=== PATIENT | female | born 1935 | race African-American/Black ===

== ENCOUNTER 2016-11-02 10:13 | Emergency (ER) | payer OTHER ==
--- NOTE | ~2016-11-02 | CT4 ---
[facility] A Service of [facility] & [facility] RADIOLOGY TEXT RESULTS PATIENT: YESSENIA KRAMER LOCATION: [facility] : 34 UNIT #: [id number] AGE: [address]: Tk Grimaldo MD SEX: F ORDER DR: [id number] [facility] [address] [place], [place] [address] [id number] MR#: [id number] Acc #: [id number] NAME: YESSENIA KRAMER. : 1935 SEX: F STUDY DATE/TIME: 11/02/2016 10:56 UNIT: [facility] ROOM: STUDY DESCRIPTION: CT Abd and Pelv Wo Cont Attending Physician: Tk Grimaldo M.D. Ordering Physician: Tk Grimaldo M.D. Primary Care Physician: Addi Landon Obi, M.D. MEDICAL IMAGING REPORT This report is preliminary unless electronic signature is present EXAM CT abdomen and pelvis without IV contrast COMPARISON November 21, 2006 INDICATIONS 81-year-old female with abdominal swelling for 2 weeks. No bowel movement for [address] exam was performed with one or more of the following radiation dose reduction techniques: automatic exposure control, adjustment of mA and/or kV according to patient size, and iterative reconstruction. FINDINGS Axial CT imaging of the abdomen and pelvis was performed without IV contrast. Lack of IV contrast limits evaluation of adenopathy, vasculature and viscera. As compared to 2006, there is new skin thickening along the bilateral anterior abdominal wall draping over the pelvis where there is a pannus. This may represent an acute or chronic cellulitis. Clinical correlation is recommended. Evaluation of the pelvis is mildly limited by streak artifact from the patient's right hip total arthroplasty. 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 There is heterotopic calcification just superior to the right acetabulum and at the expected location of the greater trochanter. There is marginal osteophyte formation of the left femoral head. Degenerative changes of both sacroiliac joints. There is bulky degenerative facet disease at L5-S1 bilaterally. There is diffuse osteopenia. Disc spacer devices are noted at L4-L5. There is posterior spinal fusion hardware spanning L2-L4 bilaterally. No evidence of hardware complication. There is also laminectomy seen at the levels of the posterior spinal fusion. No STS. [facility] A Service of [facility] & [facility] RADIOLOGY TEXT RESULTS PATIENT: YESSENIA KRAMER [facility] [id number] : 34 UNIT #: [id number] AGE: [address]: Tk Grimaldo MD SEX: F ORDER DR: evidence of spinal fusion hardware complication. There is severe degenerative disc disease and degenerative endplate change at L1-L2. There is grade 1 degenerative anterolisthesis of L4 on L5. Marked disc height loss at multiple levels of the thoracic spine. Calcified right perihilar lymph nodes are again noted. There are calcified granulomas within the liver and spleen. There is mild cardiomegaly. Minimal calcification at the mitral valve leaflets or the papillary muscles. There is a low-density lesion in the right hepatic lobe which has indeterminate internal Hounsfield units of approximately 31. This measures up to approximately 1.5 cm and is not significantly changed from 2007, most in keeping with benign cyst or hemangioma. Gallbladder is unremarkable. There is mild pancreatic atrophy. There is thickening of the medial limb of the left adrenal gland which appears to be occupied by a hypoattenuating nodule with Hounsfield units of 14. This measures approximately 2.8 cm x 1.9 cm and is stable from 2007 most consistent with a benign adrenal adenoma. There is a bilateral renal atrophy. Arterial calcifications at the renal latricia bilaterally. There is either a benign cyst or angiomyolipoma extending from the inferior pole of the left kidney measuring up to 2.7 cm. There is a hyperdense lesion extending exophytically from the mid pole of the right kidney measuring up to 1.3 cm which was not definitely seen previously. This would seem most in keeping with hemorrhagic cyst. No hydronephrosis or hydroureter. No renal or ureteral calculi. Bilateral pelvic phleboliths noted. There has been prior hysterectomy. No definite adnexal masses are seen although again evaluation is limited by streak artifact from the patient's right hip arthroplasty. No definite adnexal masses are seen although evaluation is limited for the same reasons. There are minimal diverticula of the sigmoid colon. No evidence of acute diverticulitis. There are also a few cecal and right-sided colonic diverticula without evidence of acute diverticulitis. The appendix is normal. Please note that part of the splenic flexure of the colon is excluded from field of view. Gallbladder is unremarkable. There is no evidence of bowel obstruction. No free fluid or pneumoperitoneum. There is diffuse calcification of the abdominal aorta involving the proximal celiac, superior mesenteric and bilateral renal arteries. These calcifications are quite dense at these levels. There is diffuse calcification of the splenic artery without evidence of aneurysm. No adenopathy. IMPRESSION 1. No acute findings in the abdomen, pelvis or imaged lower chest aside for skin thickening seen bilaterally along the lower anterior abdominal wall which is new from 2007, and extends inferiorly along the skin of the patient's pannus. This likely reflects cellulitis of uncertain acuity. Clinical correlation recommended. 2. Mild cardiomegaly with either calcification at the mitral valve or calcifications involving the papillary muscles at this level as well. 3. Severe neural foraminal narrowing at T9-T10 on the right due to STS. [facility] A Service of [facility] RADIOLOGY TEXT RESULTS PATIENT: YESSENIA KRAMER [facility] #: [id number] : 34 UNIT #: [id number] AGE: [address]: Tk Grimaldo MD SEX: F ORDER DR: posterior disc osteophyte complex and degenerative facet disease. 4. Stable 1.7 cm hypoattenuating lesion in the right hepatic lobe which has indeterminate density but given stability since 2006, this is most likely benign, most likely representing a cyst or hemangioma. Stable 1.9 cm benign right adrenal nodule. 5. Benign cyst versus angiomyolipoma of the left kidney. No evidence of rupture or hemorrhage. Bilateral renal atrophy. 6. New 1.3 cm hyperdense lesion extending from the midpole of the right kidney measuring up to 1.3 cm. This most likely represents a hemorrhagic cyst. One could consider CT followup in 1 year to document stability or alternatively ultrasound could be performed now to evaluate for possible internal color flow if the patient cannot receive iodinated contrast. Alternatively, if the patient can receive IV contrast, consider CT abdomen now with and without IV contrast to exclude significant enhancement. 7. Mild diverticulosis without evidence of acute diverticulitis. 8. Dense arterial calcifications involving the major branches of the abdominal aorta as described above. 9. Prior right total hip arthroplasty as well as prior laminectomy and posterior fusion in the lumbar spine. No evidence of hardware complication. Dictated by... Dannie Metcalf M.D. THIS IS AN ELECTRONICALLY VERIFIED REPORT Dannie Metcalf M.D. at 11/06/2016 11:33 AM Ana TD: 11/02/2016 22:40 JOB #: [id number] MEDICAL IMAGING REPORT Page 1 of 1 COPY
[~2016-11-02 10:13] MED LIST: AMLODIPINE BESY10 MG PO; ATENOLOL50 MG PO; AVANDAMET 2 MG/1 TAB PO; ENABLEX7.5 MG PO; HYDROCODON-ACE1 EAC7 PO; HYZAAR 100-25 T1 TAB PO; JANUVIA100 MG PO; OXYCODONE; PEPCID40 MG PO; SIMVASTATIN20 MG PO; VITAMIN B PO; VITAMIN D3400 UNIT PO
[2016-11-02 10:40] LABS: URINE SOURCE CLEAN CATCH
[2016-11-02 10:51] LABS: URINE APPEARANCE CLOUDY; URINE BILIRUBIN NEG (NEG); URINE BLOOD NEG (NEG); URINE COLOR YELLOW; URINE GLUCOSE NEG (NEG); URINE KETONE NEG (NEG); URINE LEUKOCYTE ESTERASE 2+ (NEG); URINE NITRATE NEG (NEG); URINE PROTEIN 2+ (NEG); URINE SPECIFIC GRAVITY 1.015 (1.003-1.035); URINE UROBILINOGEN 0.2 MG/DL (NEG)
[2016-11-02 10:54] LABS: BASOPHIL% 0.8 % (0-2.5); DIFF IND NO; EOSINOPHIL# 0.2 X10e3 (0-0.7); EOSINOPHIL% 3.2 % (0.0-7.0); HEMATOCRIT 37.4 % (35.0-45.0); HEMOGLOBIN 11.5 gm/dL (12.0-16.0); LYMPHOCYTE# 1.5 X10e3 (1.0-3.5); LYMPHOCYTE% 23.7 % (17.0-45.0); MEAN CELL VOLUME 83.1 FL (83-96); MEAN CORPUSCULAR HEMOGLOBIN 25.6 PG (28-34); MEAN CORPUSCULAR HGB CONC 30.8 g/dL (30-36); MEAN PLATELET VOLUME 8.8 FL (6.5-11.5); MONOCYTE# 0.4 X10e3 (0-1.0); NEUTROPHIL# 4.2 X10e3 (1.5-7.1); NEUTROPHIL% 65.3 % (40-75); PLATELET COUNT 177 X10e3 (140-420); RED CELL DISTRIBUTION WIDTH 15.9 % (11.0-15.5); WHITE BLOOD COUNT 6.4 X10e3 (4.0-10.5)
[2016-11-02 10:54] LABS: CULTURE INDICATED? YES; U HYALINE CASTS AUWI 0-2 /[LPF]; URINE BACTERIA AUWI 1+ (NEGATIVE); URINE SQUAMOUS EPITHELIAL CELL OCC /[HPF]
[2016-11-02 11:12] LABS: URBCS1 AUWI NEG /[HPF] (0-2)
[2016-11-02 11:13] LABS: ALBUMIN SERUM 3.3 g/dL (3.5-5.0); BILIRUBIN, DIRECT 0.1 mg/dL (0.0-0.2); BILIRUBIN,INDIRECT 0.4 mg/dL (0.0-0.9); BILIRUBIN,TOTAL 0.5 mg/dL (0.2-2.0); BUN/CREATININE RATIO 25.88; CALCIUM SERUM 9.1 mg/dL (8.4-10.2); CREATININE SERUM 1.7 mg/dL (0.6-1.4); POTASSIUM 4.8 mmol/L (3.5-5.1); PROTEIN TOTAL SERUM 6.8 g/dL (6.0-8.3)
== END 2016-11-02 12:22 | disposition home or self-care (01) ==
LOC: CED 10:13
PROVIDERS: Emergency Medicine
DX: K59.00 Constipation, unspecified (principal); N28.9 Disorder of kidney and ureter, unspecified; L03.311 Cellulitis of abdominal wall; E11.9 Type 2 diabetes mellitus without complications; I10 Essential (primary) hypertension; Z88.2 Allergy status to sulfonamides; Z87.891 Personal history of nicotine dependence
CPT/HCPCS: 36415; 74176; 80048; 80076; 81003; 82150; 83690; 85025; 87086; 99284

== ENCOUNTER 2017-01-03 10:14 | Emergency (ER) | payer OTHER, MEDICARE ==
--- NOTE | ~2017-01-03 | CR230 ---
[facility] A Service of [facility] & [facility] RADIOLOGY TEXT RESULTS PATIENT: YESSENIA KRAMER LOCATION: [facility] : 34 UNIT #: [id number] AGE: [address]: Tk Grimaldo MD SEX: F ORDER DR: [id number] [facility] [address] [place], [place] [address] [id number] E MR#: [id number] Acc #: [id number] NAME: YESSENIA KRAMER. : 1935 SEX: F STUDY DATE/TIME: 01/03/2017 11:04 UNIT: [facility] ROOM: STUDY DESCRIPTION: CR Shoulder Min 2 View Rt Attending Physician: Tk Grimaldo M.D. Ordering Physician: Tk Grimaldo M.D. Primary Care Physician: Addi Landon Obi, M.D. MEDICAL IMAGING REPORT This report is preliminary unless electronic signature is present EXAM Right shoulder, 3 views COMPARISON None INDICATION 81-year-old female with right shoulder pain for 4 days. No known injury. FINDINGS There is bulky osteophyte formation at the right acromioclavicular joint with large humeral head osteophytes as well. There is undersurface touching of the humeral head to the acromion where there is also sclerosis and suggestion of osteophyte formation. Findings are most consistent with a full-thickness rotator cuff tear. Shoulder is anatomically aligned. Evaluation for acute fracture is limited by under-penetration and osteopenia. No evidence of acute fracture on this exam. IMPRESSION 1. No acute fracture or dislocation. 2. 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 3. Pseudoarthrosis of the acromion and humeral head with [id number] touching most consistent with full-thickness rotator cuff tear. Dictated by... Dannie Metcalf M.D. THIS IS AN ELECTRONICALLY VERIFIED REPORT Dannie Metcalf M.D. at 01/10/2017 2:27 PM NICA/robe TD: 01/03/2017 13:28 [facility] A Service of [facility] & [facility] RADIOLOGY TEXT RESULTS PATIENT: YESSENIA KRAMER [id number] : 34 UNIT #: [id number] AGE: [address]: Tk Grimaldo MD SEX: F ORDER DR: JOB #: [id number] MEDICAL IMAGING REPORT Page 1 of 1 COPY
== END 2017-01-03 12:36 | disposition home or self-care (01) ==
LOC: CED 10:14
DX: M25.511 Pain in right shoulder (principal); E11.9 Type 2 diabetes mellitus without complications; Z79.4 Long term (current) use of insulin; E78.5 Hyperlipidemia, unspecified; Z88.2 Allergy status to sulfonamides
CPT/HCPCS: 73030; 96372; 99283; J1885

== ENCOUNTER 2017-03-01 13:37 | Inpatient (IN) | payer OTHER, MEDICARE ==
[~2017-03-01] VITALS: Ht 160 cm; Wt 103.0 kg
--- NOTE | ~2017-03-01 | CR72 ---
[facility] A Service of [facility] & [facility] RADIOLOGY TEXT RESULTS PATIENT: YESSENIA KRAMER LOCATION: [facility] 334-01 : 34 UNIT #: [id number] AGE: [address]: Joseline Calix MD SEX: F ORDER DR: [id number] [facility] [address] [place], [place] [address] [id number] I MR#: [id number] Acc #: [id number] NAME: YESSENIA KRAMER. : 1935 SEX: F STUDY DATE/TIME: 03/01/2017 17:19 UNIT: [facility] ROOM: 23137 STUDY DESCRIPTION: CR Chest Single View Portable Attending Physician: Joseline Calix M.D. Ordering Physician: Robby Srivastava M.D. Primary Care Physician: Addi Landon Obi, M.D. MEDICAL IMAGING REPORT This report is preliminary unless electronic signature is present EXAM Portable chest HISTORY Swelling, redness and congestion, chest pain x2 days. COMPARISON 09/19/2011. FINDINGS Portable view of the chest demonstrates cardiomegaly without failure. Mild aortic atherosclerotic changes. Chronic changes in both shoulders suggests chronic rotator cuff tears and secondary arthropathy. No infiltrates, effusions or pneumothorax. Dictated by... Corrine Mejia M.D. THIS IS AN ELECTRONICALLY VERIFIED REPORT Corrine Mejia M.D. at 03/02/2017 7:15 AM JAYLYN/eligio TD: 03/02/2017 06:25 JOB #: [id number] MEDICAL IMAGING REPORT Page 1 of 1 COPY
--- NOTE | ~2017-03-01 | CO ---
Unit #: [id number] #: [id number] Patient: YESSENIA MARSHALL [id number] [address] [place], [place] [address] [id number] I MR#: [id number] NAME: YESSENIA MARSHALL. ROOM: 334 Age: 81 Sex: F Admission Date: 03/01/2017 : 1935 Attending Physician: Clyde Bone M.D. Primary Care Physician: Addi Landon Obi, M.D. Consultation Date: 03/02/2017 CONSULTATION REPORT REASON FOR CONSULTATION Renal insufficiency. Thank you very much for asking me to see this patient in consultation. HISTORY OF PRESENT ILLNESS Ms. Marshall is an 81-year-old female, who has a history of some chronic kidney disease, stage 3 in the past and has been seen by Dr. Link Correa as well as our nurse practitioner in the office, who has creatinine over the last year has ranged between anywhere from 1.2 to 1.7 and according to their note, felt it was probably related to combination of diabetes and hypertension. The patient states she has had increased swelling for a long time and started getting redness of her leg which prompted her to come to the emergency room, at which time, she was admitted for cellulitis of her left lower extremity. The patient has a long past medical history as well outlined below. She denies any chest pain, chest heaviness, shortness of breath, nausea, vomiting, or diarrhea. PAST MEDICAL HISTORY History of chronic kidney disease stage 3, history of diabetes mellitus, history of hypertension. In the past, she has had a negative metanephrines in the 24-hour urine according to Francis's note. I am not sure of other workup. She has a history of hyperlipidemia; history of atherosclerotic coronary artery disease with congestive heart failure, although last EF I saw at [facility] [place] was 62%; history of breast CA, status post left mastectomy 27 years ago; history of adrenal adenoma; history of urinary incontinence, status post urethral dilatation in the past; history of osteoporosis; history of osteoarthritis. ALLERGIES Include sulfa drugs. SOCIAL HISTORY Previous smoker, stopped in 1999. . Previous EtOH use and stopped in 2007. MEDICATIONS According to medicine list, although it is different than what is on her Blanco's listed and she still not totally sure, but hydrocodone p.r.n. for pain, aspirin daily, losartan and hydrochlorothiazide 100/25 a day, atenolol 25 mg a day, gabapentin 100 mg t.i.d., Zantac 150 mg a day, atorvastatin 20 mg a day. Brayden has her on metoprolol ER 100 a day and Lasix 40 mg once a day although she states she takes the Lasix b.i.d. Unit #: [id number] #: [id number] Patient: YESSENIA MARSHALL REVIEW OF SYSTEMS She denies any fevers, chills, visual problems, sinus problems, cough, hemoptysis, sore throat. She denies any neck pain or neck stiffness. She denies any chest pain, chest heaviness, or palpitations. She denies any palpitations. She denies any significant shortness of breath. She denies any severe abdominal pain, nausea, vomiting, or diarrhea. She denies any urinary symptoms. She denies any recent seizures or strokes. She has redness in her lower leg and increased swelling for a while she states. FAMILY HISTORY Noncontributory. PHYSICAL EXAMINATION GENERAL: She is alert and oriented. VITAL SIGNS: Temperature 99.0, Pulse 75 to 98, blood pressure 101 to 198/70 to 91. HEENT: She is normocephalic and atraumatic. Pupils are equal, round, and reactive to light. Extraocular muscles are intact. Hearing appears to be normal. Mouth is clear. No erythema. No exudate. NECK: Supple. No JVD. CARDIAC: She has regular rate and rhythm with about a 2/6 systolic ejection murmur. LUNGS: Clear bilaterally. No wheezes, rhonchi, or rales. ABDOMEN: Obese, bowel sounds positive, nontender, soft. EXTREMITIES: Her legs are large. She has positive lower extremity edema bilateral. She has erythema of the lower left leg. NEURO: Appears to be intact motor and sensory grossly. : Deferred. DIAGNOSTIC STUDIES LABORATORY RESULTS: Shows sodium of 144, potassium 4.5, chloride is 109, bicarb is 26, BUN of 48, creatinine 2.0, glucose 106, calcium is 8.5, albumin is 2.8. BNP was 240. T saturation was 7. Hemoglobin 10.0, white count 9100, platelets 197,000. IMAGING STUDIES: Chest x-ray showed cardiomegaly, but no failure. Lower extremity, negative for DVT. ASSESSMENT/PLAN 1. Renal insufficiency. The patient's creatinine is already down to 1.8, again usually it runs creatinine around 1.2 to 1.7 and again according to our office notes felt related to combination of diabetes and hypertension. I would like to go ahead and check serum protein immunofixation. We will continue to follow. We will adjust her medicines as well mentioned below. 2. Hypertension. Again, history of adrenal adenoma. We will check an aldosterone and renin level. We will adjust her medications. 3. Swelling questionable from kidneys versus medications i.e. Neurontin versus decreased heart function, although normal ejection fraction in the past. We will discontinue Neurontin and start Lasix again, questionable home dose. We will start her on 40 b.i.d. and check 2D echo. 4. Diabetes mellitus. 5. Cellulitis. Again, agree withholding aminoglycosides and vancomycin if possible. 6. Atherosclerotic coronary artery disease. Dictated by.Amber Correa M.D. Unit #: [id number] #: [id number] Patient: YESSENIA MARSHALL WAD/modl TD: 03/02/2017 23:59 JOB #: [id number] CONSULTATION REPORT Page 1 of 1 X Romulo Correa MD X CONSULTATION REPORT
--- NOTE | ~2017-03-01 | HP ---
Unit #: [id number] #: [id number] Patient: YESSENIA KRAMER [id number] [place], [place] [address] [id number] I MR#: [id number] NAME: YESSENIA KRAMER. ROOM: 04317 Age: 81 Sex: F Admission Date: 03/01/2017 : 1935 Attending Physician: Joseline Calix M.D. Primary Care Physician: Addi Landon Obi, M.D. HISTORY AND PHYSICAL CHIEF COMPLAINT Left leg swelling. HISTORY OF PRESENT ILLNESS The patient is an 81-year-old female with past medical history of diabetes, hypertension, hyperlipidemia, coronary artery disease, chronic kidney disease, breast cancer, who presented to the emergency department for evaluation of the above. The patient states that her legs are typically swollen. Over the past couple of day, she has noticed increased swelling and redness involving the left leg. She denies any fever. No chest pain. No shortness of breath. She states that her appetite has been good. She denies any vomiting or diarrhea. She has had an occasional cough that is non productive within the past couple of days. In the emergency department, initial temperature was 98.7. Pulse and blood pressure 82 and 152/60 respectively. Bilateral lower extremity venous Dopplers were done and negative. She was given Rocephin in the emergency department. She is being admitted to [facility] for evaluation and further treatment. PAST MEDICAL HISTORY 1. Admission to [facility] in 2014 for a urinary tract infection (no records). 2. Diabetes with peripheral neuropathy. 3. Hypertension. 4. Hyperlipidemia. 5. Coronary artery disease. The patient had a cardiac catheterization, December 23, 2010, that showed moderate nonobstructive coronary artery disease with an ejection fraction of 55 to 60%. She is followed by Dr. Padron. 6. Chronic kidney disease followed by Dr. Correa. 7. Breast cancer status post mastectomy and chemotherapy. PAST SURGICAL HISTORY 1. Cardiac catheterization, December 23, 2010, showed moderate nonobstructive coronary artery disease with an ejection fraction of 55 to 60%. 2. Back surgery. 3. Hip surgery. 4. Mastectomy. 5. ERCP. SOCIAL HISTORY Unit #: [id number] #: [id number] Patient: YESSENIA KRAMER The patient lives with her daughter. There is no tobacco or alcohol use. She walks with a walker. Her CODE status is a FULL CODE. FAMILY HISTORY Notable for her dad having colon cancer. ALLERGIES Sulfa. HOME MEDICATIONS 1. [place] 7.5/325 mg four times daily. 2. Aspirin 81 mg daily. 3. Losartan/HCTZ 100/12.5 mg daily. 4. Tenormin unknown dose. 5. Neurontin unknown dose t.i.d. 6. Zantac unknown dose daily. 7. Lipitor, again, unknown dose. Home medications will need to be verified. REVIEW OF SYSTEMS A complete review of systems is negative except as indicated in the HPI. The patient states that blood sugars are typically ranging from 79 to 108. PHYSICAL EXAMINATION GENERAL APPEARANCE: The patient is a very pleasant, -Wallisian female who is awake and alert, in no acute distress. VITAL SIGNS: Temperature 98.7. Pulse 82. Respiration 17. Blood pressure 162/60. Oxygen saturation is 96% on room air. HEENT: The head is atraumatic. Mucous membranes are moist. NECK: Supple. Trachea is midline. CARDIOVASCULAR: Regular rate and rhythm. She does have a 3/6 systolic ejection murmur. LUNGS: Clear to auscultation bilaterally with no increased work of breathing. ABDOMEN: Obese, soft, nontender with bowel sounds present in all four quadrants. EXTREMITIES: The left lower extremity is erythematous, warm and tender to palpation. The right lower extremity is also edematous (2 to 3+) with no erythema or warmth. NEUROLOGIC: The patient is awake and alert. She follows commands. PSYCHIATRIC: Mood and affect are normal. The patient is cooperative. SKIN: Of examined areas is warm and dry. DIAGNOSTIC STUDIES LABORATORY: Complete blood count notable for hemoglobin and hematocrit of 9.9 and 31.6 respectively. MCV is 82.5. RDW is 15.9. Troponin is less than 0.05. Lactic acid is one. INR is 0.9. Comprehensive metabolic panel notable for BUN and creatinine and 48 and 2 respectively, alkaline phosphatase 163. Albumin is 2.8. BNP is 240. IMAGING: Chest x-ray shows cardiomegaly but no infiltrate. Bilateral lower extremity venous Dopplers negative for DVT. CARDIOVASCULAR: EKG shows normal sinus rhythm with a rate of 75 beats per minute. ASSESSMENT Unit #: [id number] #: [id number] Patient: YESSENIA KRAMER The patient is an 81-year-old female with: 1. Left lower extremity cellulitis. The patient received Rocephin in the emergency department. 2. Chronic lower extremity edema. 3. Acute on chronic kidney disease. The patient's creatinine has been as high as 1.7 on November 02, 2016. It is 2 today. She is on Losartan as well as hydrochlorothiazide which could be attributing. 4. Chronic anemia. The patient's hemoglobin was 11.5 on November 02, 2016. It is 9.9 today. 5. Hypertension. 6. Hyperlipidemia. 7. Coronary artery disease with cardiac catheterization results as noted above. 8. Diabetes. 9. History of breast cancer status post mastectomy and chemotherapy. PLAN 1. Admit to intermediate level. 2. Healthy Heart consistent carb diet. 3. Blood cultures x2. 4. Linezolid and Zosyn IV for cellulitis pending further workup. 5. Check CPK. 6. Strict Is and Os. 7. Consult Dr. Correa, the patient's body man regarding acute on chronic kidney disease. 8. Hold Losartan/HCTZ pending Dr. Correa's recommendations. 9. Low dose sliding scale insulin with Accu-Cheks. 10. Iron studies, B12 and folate. 11. Hemoccult stool. 12. Repeat labs in the morning. 13. Additional workup and consultants based on above. Dictated by Ventura Casiano/elayne TD: 03/02/2017 06:04 JOB #: [id number] HISTORY AND PHYSICAL Page 1 of 1 X Joseline Calix MD HISTORY AND PHYSICAL
--- NOTE | ~2017-03-01 | EKG ---
PATIENT: YESSENIA KRAMER UNIT #: [id number] Ventricular Rate: 75 BPM Atrial Rate: 75 BPM P-R Interval: 162 ms QRS Duration: 76 ms Q-T Interval: 372 ms QTC Calculation(Bezet): 415 ms P [place]: 95 degrees Calculated R [place]: 15 degrees Calculated T [place]: 34 degrees Diagnosis Line: Normal sinus rhythm Diagnosis Line: Normal ECG Diagnosis Line: When compared with ECG of 23-DEC-2010 07:04, Diagnosis Line: No significant change was found Diagnosis Line: Confirmed by MEREDITH VEGA MD ([id number]) on Diagnosis Line: 03/01/2017 11:17:35 PM INTERPRETING MD: GARY PACKER
--- NOTE | ~2017-03-01 | US84 ---
[id number] [facility]. [facility] [address] [place], [place] [address] [id number] MR#: [id number] Acc #: [id number] NAME: YESSENIA KRAMER : 1935 SEX: F STUDY DATE/TIME: 03/01/2017 16:18 UNIT: [id number] ROOM: 334 STUDY DESCRIPTION: US LE Veins Complete William Stdy Attending Physician: Joseline Calix M.D. Ordering Physician: Robby Srivastava M.D. Primary Care Physician: Addi Landon Obi, M.D. MEDICAL IMAGING REPORT This report is preliminary unless electronic signature is present EXAM Bilateral lower extremity venous Doppler HISTORY Bilateral lower extremity pain, swelling and tenderness in the calf x4 days. TECHNIQUE Venous ultrasound examination of both lower extremities was performed using grayscale, spectral Doppler and color flow Doppler imaging. FINDINGS The examination is negative. There is no evidence of deep venous thrombus from the groin to the lower calf bilaterally. Visualized greater saphenous veins are also patent. IMPRESSION Negative examination. No evidence of lower extremity deep venous thrombosis. Dictated by... Corrine Mejia M.D. THIS IS AN ELECTRONICALLY VERIFIED REPORT Corrien Mejia M.D. at 03/02/2017 7:16 AM JAYLYN/eligio TD: 03/02/2017 06:51 JOB #: [id number] MEDICAL IMAGING REPORT Page 1 of 1 COPY
--- NOTE | ~2017-03-01 | DS ---
Unit #: [id number] #: [id number] Patient: YESSENIA KRAMER [id number] [address] [address] [id number] MR#: [id number] NAME: YESSENIA KRAMER. ROOM: 334 Age: 81 Sex: F Admission Date: 03/01/2017 : 1935 Discharge Date: Attending Physician: Clyde Bone M.D. Primary Care Physician: Addi Landon Obi, M.D. DISCHARGE SUMMARY PRIMARY DIAGNOSIS Cellulitis of left romero. SECONDARY DIAGNOSES 1. Hypertension. 2. Chronic lower extremity edema, likely lymphedema. 3. Diabetes mellitus type 2, uncontrolled. 4. Anemia, stable. Likely iron deficiency and anemia of chronic disease. 5. Chronic kidney disease, stage 4. 6. Coronary artery disease, clinically stable. 7. Physical deconditioning. HOSPITAL COURSE The patient was admitted to the hospital, started on IV Zosyn and IV linezolid with improvement in the patient's cellulitis. We also elevated her legs above her heart, which I think helped with the erythema, as well as the swelling. The patient was diuresed with the assistance of Dr. Carlos Correa with nephrology and had stable creatinine through diuresis. She did get improvement in her lower extremity edema with diuresis and should continue on a low-sodium diet at rehab. She will be switched to p.o. doxycycline at discharge for continued treatment of her cellulitis. Blood cultures were negative at the time of discharge. Urine culture was negative at 48 hours. Urine protein to creatinine was notably positive for approximately 2 grams of protein per day. DISCHARGE DISPOSITION To subacute rehab. DISCHARGE STATUS Stable. DISCHARGE ACTIVITY With assistance only. DISCHARGE DIET A 2,000 mg sodium, diabetic diet. DISCHARGE FOLLOW-UP 1. Discharge followup is with Dr. Carlos Correa in 8-12 weeks. 2. Follow up with PCP in 4-8 weeks. DISCHARGE MEDICATIONS 1. Pepcid 20 mg p.o. daily. Unit #: [id number] #: [id number] Patient: YESSENIA KRAMER 2. Aspirin 81 mg p.o. daily. 3. Lortab 7.5 mg 1 tablet p.o. q.6 hours p.r.n. pain. 4. Spironolactone 25 mg p.o. daily. 5. Calcium carbonate 500 mg p.o. daily. 6. Vitamin D 1,000 units p.o. daily. 7. Atenolol 25 mg p.o. daily. 8. Lasix 40 mg p.o. daily. 9. Lipitor 20 mg p.o. daily. 10. Hydralazine 25 mg p.o. t.i.d. 11. Cozaar 100 mg p.o. daily. 12. NovoLog low-dose sliding scale subcu a.c. and q.h.s. 13. Ferrous gluconate 324 mg p.o. once daily. 14. Doxycycline 100 mg p.o. b.i.d. for 5 additional days. 15. Clobetasol propionate 0.05% cream mixed with mupirocin ointment 50% of each applied to lower extremities bilaterally from toes to knees b.i.d. 1. Dictated by... Clyde Bone M.D. SYDNEE/juan manuel TD: 03/05/2017 14:42 JOB #: [id number] DISCHARGE SUMMARY Page 1 of 1 X Clyde Bone MD X DISCHARGE SUMMARY
[2017-03-01 15:59] LABS: BASOPHIL% 0.5 % (0-2.5); EOSINOPHIL# 0.2 X10e3 (0-0.7); EOSINOPHIL% 2.2 % (0.0-7.0); HEMATOCRIT 31.6 % (35.0-45.0); HEMOGLOBIN 9.9 gm/dL (12.0-16.0); LYMPHOCYTE# 1.1 X10e3 (1.0-3.5); LYMPHOCYTE% 11.9 % (17.0-45.0); MEAN CELL VOLUME 82.5 FL (83-96); MEAN CORPUSCULAR HEMOGLOBIN 25.8 PG (28-34); MEAN CORPUSCULAR HGB CONC 31.3 g/dL (30-36); MEAN PLATELET VOLUME 8.9 FL (6.5-11.5); MONOCYTE# 0.7 X10e3 (0-1.0); MONOCYTE% 7.4 % (3.0-12.0); NEUTROPHIL# 7.3 X10e3 (1.5-7.1); PLATELET COUNT 199 X10e3 (140-420); RED BLOOD COUNT 3.83 X10e (3.90-5.30); RED CELL DISTRIBUTION WIDTH 15.9 % (11.0-15.5); WHITE BLOOD COUNT 9.4 X10e3 (4.0-10.5)
[2017-03-01 16:01] LABS: DIFF IND NO
[2017-03-01 16:08] LABS: POC - CKMB 2.3 ng/mL (0.0-7.9); POC - TROPONIN <0.05 ng/mL (<=0.05)
[2017-03-01 16:10] LABS: INR 0.9; PROTHROMBIN TIME (PATIENT) 10.2 SECONDS (10.0-11.7)
[2017-03-01 16:20] LABS: ALBUMIN SERUM 2.8 g/dL (3.5-5.0); BILIRUBIN, DIRECT 0.1 mg/dL (0.0-0.2); BILIRUBIN,INDIRECT 0.6 mg/dL (0.0-0.9); BILIRUBIN,TOTAL 0.7 mg/dL (0.2-2.0); CALCIUM SERUM 8.8 mg/dL (8.4-10.2); GLOM FILT RATE Estimated 26.3 mL/min (>60); POTASSIUM 4.5 mmol/L (3.5-5.1); PROTEIN TOTAL SERUM 6.9 g/dL (6.0-8.3)
[2017-03-01] MEDS ORDERED: HYDROCODON-ACE1 EAC9 PO (16:54)
[2017-03-01] MEDS ORDERED: LOW DOSE ASPIRI81 M1 PO (16:55)
[2017-03-01] MEDS ORDERED: TENORMIN25 M1 (16:55)
[2017-03-01] MEDS ORDERED: LOSARTAN-HCTZ1 EAC2 PO (16:55)
[2017-03-01] MEDS ORDERED: NEURONTIN100 MG PO (16:56)
[2017-03-01] MEDS ORDERED: LIPITOR20 MG PO (16:57)
[2017-03-01] MEDS ORDERED: ZANTAC150 MG PO (16:57)
[2017-03-02 00:37] LABS: CK TOTAL 53 IU/L (26-140)
[2017-03-02 07:49] LABS: BASOPHIL% 0.5 % (0-2.5); EOSINOPHIL# 0.1 X10e3 (0-0.7); EOSINOPHIL% 1.5 % (0.0-7.0); MEAN CELL VOLUME 82.6 FL (83-96); MEAN CORPUSCULAR HGB CONC 31.4 g/dL (30-36); MEAN PLATELET VOLUME 8.4 FL (6.5-11.5); MONOCYTE# 0.8 X10e3 (0-1.0); MONOCYTE% 8.7 % (3.0-12.0); NEUTROPHIL# 7.2 X10e3 (1.5-7.1); NEUTROPHIL% 78.3 % (40-75); PLATELET COUNT 197 X10e3 (140-420); RED BLOOD COUNT 3.87 X10e (3.90-5.30); RED CELL DISTRIBUTION WIDTH 15.8 % (11.0-15.5); WHITE BLOOD COUNT 9.1 X10e3 (4.0-10.5)
[2017-03-02 07:55] LABS: DIFF IND NO
[2017-03-02 08:13] LABS: CK TOTAL 56 IU/L (26-140)
[2017-03-02 08:24] LABS: ALBUMIN SERUM 2.8 g/dL (3.5-5.0); BUN/CREATININE RATIO 22.77; CALCIUM SERUM 8.5 mg/dL (8.4-10.2); CREATININE SERUM 1.8 mg/dL (0.6-1.4); GLOM FILT RATE Estimated 29.9 mL/min (>60); POTASSIUM 4.8 mmol/L (3.5-5.1); PROTEIN TOTAL SERUM 6.1 g/dL (6.0-8.3)
[2017-03-03 07:32] LABS: CREATININE,RANDOM URINE 20 mg/dL; TOTAL PROTEIN,RANDOM URINE 39 mg/dl (<10)
[2017-03-03 08:16] LABS: HEMATOCRIT 31.7 % (35.0-45.0); MEAN CELL VOLUME 81.3 FL (83-96); MEAN CORPUSCULAR HEMOGLOBIN 25.8 PG (28-34); MEAN CORPUSCULAR HGB CONC 31.7 g/dL (30-36); MEAN PLATELET VOLUME 8.3 FL (6.5-11.5); RED BLOOD COUNT 3.9 X10e (3.90-5.30); RED CELL DISTRIBUTION WIDTH 15.5 % (11.0-15.5); WHITE BLOOD COUNT 11.2 X10e3 (4.0-10.5)
[2017-03-03 08:55] LABS: BUN/CREATININE RATIO 16.5; CALCIUM SERUM 8.8 mg/dL (8.4-10.2); GLOM FILT RATE Estimated 26.3 mL/min (>60); MAGNESIUM 1.9 mg/dL (1.6-3.0); PHOSPHOROUS 3.8 mg/dL (2.5-4.6); POTASSIUM 4.3 mmol/L (3.5-5.1)
[2017-03-04 05:36] LABS: HEMATOCRIT 30.3 % (35.0-45.0); HEMOGLOBIN 9.5 gm/dL (12.0-16.0); MEAN CELL VOLUME 81.3 FL (83-96); MEAN CORPUSCULAR HEMOGLOBIN 25.5 PG (28-34); MEAN CORPUSCULAR HGB CONC 31.4 g/dL (30-36); MEAN PLATELET VOLUME 8.4 FL (6.5-11.5); RED BLOOD COUNT 3.73 X10e (3.90-5.30); RED CELL DISTRIBUTION WIDTH 15.6 % (11.0-15.5); WHITE BLOOD COUNT 10.2 X10e3 (4.0-10.5)
[2017-03-04 05:47] LABS: CALCIUM SERUM 8.3 mg/dL (8.4-10.2); GLOM FILT RATE Estimated 26.3 mL/min (>60); POTASSIUM 3.7 mmol/L (3.5-5.1)
[2017-03-05 04:52] LABS: HEMATOCRIT 30.4 % (35.0-45.0); HEMOGLOBIN 9.5 gm/dL (12.0-16.0); MEAN CELL VOLUME 81.9 FL (83-96); MEAN CORPUSCULAR HEMOGLOBIN 25.6 PG (28-34); MEAN CORPUSCULAR HGB CONC 31.3 g/dL (30-36); RED BLOOD COUNT 3.72 X10e (3.90-5.30); RED CELL DISTRIBUTION WIDTH 15.4 % (11.0-15.5); WHITE BLOOD COUNT 9.5 X10e3 (4.0-10.5)
[2017-03-05 05:25] LABS: BUN/CREATININE RATIO 16.19; CALCIUM SERUM 8.1 mg/dL (8.4-10.2); CREATININE SERUM 2.1 mg/dL (0.6-1.4); GLOM FILT RATE Estimated 24.8 mL/min (>60); MAGNESIUM 1.9 mg/dL (1.6-3.0)
[2017-03-06 11:23] LABS: ALDOSTERONE SERUM <1 ng/dL (***); CALCIUM (PTHINTACT) 8.8 mg/dL (8.6-10.4)
== END 2017-03-05 19:00 | DRG 603 ==
LOC: CED 13:37 → CEDOF 18:45 → C3A PCU 18:45 → CED 19:59 → CEDOF 19:59 → C3A PCU 03-02 06:43
PROVIDERS: Internal Medicine; Internal Medicine Nephrology; Nurse Practitioner
PROC: 05H533Z Insertion of Infusion Device into Right Subclavian Vein, Percutaneous Approach (ICD-10-PCS; principal; 2017-03-01)
PROC: B546ZZA Ultrasonography of Right Subclavian Vein, Guidance (ICD-10-PCS; 2017-03-01)
PROC: B24BYZZ Ultrasonography of Heart with Aorta using Other Contrast (ICD-10-PCS; 2017-03-02)
DX: L03.116 Cellulitis of left lower limb (principal); N18.4 Chronic kidney disease, stage 4 (severe); E11.42 Type 2 diabetes mellitus with diabetic polyneuropathy; E11.22 Type 2 diabetes mellitus with diabetic chronic kidney disease; Z79.84 Long term (current) use of oral hypoglycemic drugs; E78.5 Hyperlipidemia, unspecified; I25.10 Atherosclerotic heart disease of native coronary artery without angina pectoris; I12.9 Hypertensive chronic kidney disease with stage 1 through stage 4 chronic kidney disease, or unspecified chronic kidney disease; Z85.3 Personal history of malignant neoplasm of breast; Z88.2 Allergy status to sulfonamides; Z79.82 Long term (current) use of aspirin; D64.89 Other specified anemias; I89.0 Lymphedema, not elsewhere classified; D50.9 Iron deficiency anemia, unspecified; E11.65 Type 2 diabetes mellitus with hyperglycemia
CPT/HCPCS: 36415; 71010; 80048; 80053; 80076; 82088; 82310; 82550; 82553; 82570; 82607; 82728; 82746; 82947; 83540; 83550; 83605; 83735; 83880; 83970; 84100; 84156; 84244; 84443; 84484; 85025; 85027; 85610; 85730; 86334; 87040; 87086; 93005; 93306; 93970; 96374; 97162; 97530; 99284; G8978-GP; G8979-GP; J0696; J1815; J2020; J2543